=== PATIENT | female | born 1995 | race Caucasian/White ===

== ENCOUNTER 2023-12-18 11:52 | Emergency (ER) | payer OTHER ==
[~2023-12-18] VITALS: Ht 170.2 cm; Wt 52.2 kg
[2023-12-18] MEDS ORDERED: ONDANSETRON 4 MG TAB.RAPDIS SL ONE (12:30)
[2023-12-18] MEDS ORDERED: ONDANSETRON 4 MG TAB.RAPDIS ONE (12:55)
[2023-12-18 13:03] VITALS: BP 112/64; TEMP 98; O2SAT 100
== END 2023-12-18 13:04 | disposition left against medical advice (07) ==
LOC: ER 11:55
DX: R11.2 Nausea with vomiting, unspecified (principal); F41.9 Anxiety disorder, unspecified
CPT/HCPCS: Q0162